=== PATIENT | female | born 1985 | race Caucasian/White ===

== ENCOUNTER 2017-10-13 13:18 | Emergency (ER) | payer BC, MEDICAID ==
[~2017-10-13] VITALS: Ht 152.4 cm; Wt 71.0 kg
[2017-10-13 13:25] VITALS: Ht 152.4 cm; Wt 71.0 kg
[2017-10-13] MEDS ORDERED: IBUPROFEN 600 MG TAB PO ONE (14:30)
--- NOTE | 2017-10-13 15:22 | RADRPT ---
PROCEDURE: XR LEFT SHOULDER. CLINICAL INDICATION: Left shoulder pain TECHNIQUE: 5 views of the left shoulder were performed. COMPARISON: None. FINDINGS: There is no evidence of acute fracture dislocation of the left shoulder. Bony mineralization and ali gnment are unremarkable. Joint spaces are preserved. The acromioclavicular joint is intact. No signi ficant soft tissue swelling. IMPRESSION: 1. No evidence of acute fracture or dislocation of the left shoulder. RPTAT: AAPP Physician Kisha Date Time Electronically viewed and signed by Physician Kisha on 10/13/2017 15:22 DAY/
--- NOTE | 2017-10-13 15:32 | RADRPT ---
PROCEDURE: XR Elbow. CLINICAL INDICATION: Trauma, left elbow pain TECHNIQUE: AP, lateral and oblique views of the left elbow performed. COMPARISON: None. FINDINGS: The lateral view is slightly limited due to patient positioning. There is no radiographic evidence o f acute fracture or dislocation. There is no significant joint effusion. The joint spaces are pres erved. The soft tissues are grossly unremarkable. IMPRESSION: 1. No radiographic evidence of acute osseous abnormality or significant joint effusion. RPTAT: UU .Gualberto Salcido MD, Date Time Electronically viewed and signed by .Gualberto Salcido MD, on 10/13/2017 15:32 .K/
--- NOTE | 2017-10-13 15:34 | RADRPT ---
PROCEDURE: XR Wrist. CLINICAL INDICATION: Left wrist pain, fall TECHNIQUE: 4 views of the right wrist were performed. COMPARISON: No prior studies are available for comparison. FINDINGS: There is a questionable nondisplaced cortical irregularity along the dorsal margin of the distal rad ius, cannot exclude a nondisplaced fracture at this location. Alignment is normal. Joint spaces are preserved. Visualized soft tissues are grossly unremarkable. IMPRESSION: 1. Questionable nondisplaced fracture along the dorsal margin of the distal radius, only seen on the lateral radiograph, not definitive. Recommend CT for further evaluation. RPTAT: UU .Gualberto Salcido MD, MD Date Time Electronically viewed and signed by .Gualberto Salcido MD, on 10/13/2017 15:34 .K/
[2017-10-13] MEDS ORDERED: IBUP400T22 PO (15:52)
[2017-10-13] MEDS ORDERED: HYDR-906 PO (15:52)
--- NOTE | 2017-10-13 18:46 | ERD ---
ER Documentation Chief Complaint Chief Complaint LEFT SHOULDER/UPPER/LOWER ARM PAIN D/T FALL AT MARKET X 1 HR AGO HPI This is a 31-year-old female presents to the ER with left shoulder pain left elbow pain and left wrist pain that started an hour ago after she slipped on some yogurt at the grocery store and fell onto her left arm. Pain is described as he it is worse with movement its throbbing in quality. Patient has not tried anything for the pain. Denies any numbness or tingling of her extremity. ROS 12 point review of systems was done, all negative except per HPI. Medications Home Meds Active Scripts Hydrocodone/Acetaminophen ([place] 5-325 Tablet) 1 Each Tablet, 1 TAB PO Q6H Y for PAIN, #10 TAB Prov:JAMES MERCHANT C 10/13/17 Ibuprofen* (Motrin*) 400 Mg Tab, 400 MG PO Q6, #30 TAB Prov:MAYUR,JAMES C 10/13/17 Allergies Allergies: Coded Allergies: No Known Drug Allergy (Verified Allergy, Unknown, 08/29/11) PMhx/Soc Medical and Surgical Hx: pt denies Medical Hx, pt denies Surgical Hx History of Surgery: No Anesthesia Reaction: No Hx Neurological Disorder: No Hx Respiratory Disorders: No Hx Cardiac Disorders: No Hx Psychiatric Problems: No Hx Miscellaneous Medical Probl: No Hx Alcohol Use: No Hx Substance Use: No Hx Tobacco Use: No Smoking Status: Never smoker Physical Exam Vitals Vital Signs Date Time Temp Pulse Resp B/P Pulse Ox O2 Delivery O2 Flow Rate FiO2 10/13/17 13:25 98.8 89 20 147/96 99 Physical Exam GENERAL: The patient is well developed and appropriate for usual state of health , in no apparent distress. HEENT: Atraumatic. CHEST: Clear to auscultation bilaterally. There are no rales, wheezes or rhonchi. HEART: Regular rate and rhythm. No murmurs, clicks, rubs or gallops. EXTREMITIES: Left shoulder: Patient has full and nonpainful range of motion of the left shoulder. She is slightly tender to palpation to the AC joint. Left elbow: Has painful extension and flexion of the left elbow she has however full range of motion. She is tender to palpation to the lateral epicondyles. There is no tenderness to palpation to the olecranon or medial epicondyles. Left wrist: Patient is tender to palpation to the distal radius, no snuffbox tenderness painful and limited extension and flexion of the wrist NEURO: Alert and oriented. Results 24 hrs Current Medications Medications (Trade) Dose Ordered Sig/Jos Route PRN Reason Start Time Stop Time Status Last Admin Dose Admin Ibuprofen (Motrin) 600 mg ONCE ONCE PO 10/13/17 14:30 10/13/17 14:31 DC 10/13/17 14:29 [place] [address] Radiology Main Line: [phone] DIAGNOSTIC IMAGING REPORT Patient: TARIK STOCKTON : 1985 Age: 31 Sex: F MR #: [id number] DOS: 10/13/17 0000 Ordering MD: JAMES MERCHANT PA-C Location: [facility] Room/Bed: PROCEDURE: XR Elbow. CLINICAL INDICATION: Trauma, left elbow pain TECHNIQUE: AP, lateral and oblique views of the left elbow performed. COMPARISON: None. FINDINGS: The lateral view is slightly limited due to patient positioning. There is no radiographic evidence of acute fracture or dislocation. There is no significant joint effusion. The joint spaces are preserved. The soft tissues are grossly unremarkable. IMPRESSION: 1. No radiographic evidence of acute osseous abnormality or significant joint effusion. RPTAT: UU .Gualberto Salcido MD, Date Time Electronically viewed and signed by .Gualberto Salcido MD, MD on 10/13/2017 15: 32 .K/ CC: JAMES MERCHANT [place] [id number] Radiology Main Line: [phone] DIAGNOSTIC IMAGING REPORT Patient: TARIK STOCKTON : 1985 Age: 31 Sex: F MR #: [id number] DOS: 10/13/17 0000 Ordering MD: JAMES MERCHANT PA-C Location: [facility] Room/Bed: PROCEDURE: XR LEFT SHOULDER. CLINICAL INDICATION: Left shoulder pain TECHNIQUE: 5 views of the left shoulder were performed. COMPARISON: None. FINDINGS: There is no evidence of acute fracture dislocation of the left shoulder. Bony mineralization and alignment are unremarkable. Joint spaces are preserved. The acromioclavicular joint is intact. No significant soft tissue swelling. IMPRESSION: 1. No evidence of acute fracture or dislocation of the left shoulder. RPTAT: AAPP Physician Kisha Date Time Electronically viewed and signed by Physician Kisha on 10/13/2017 15:22 JL/ CC: JAMES MERCHANT [address] [place] [address] Radiology Main Line: [phone] DIAGNOSTIC IMAGING REPORT Patient: TARIK STOCKTON : 1985 Age: 31 Sex: F MR #: [id number] DOS: 10/13/17 0000 Ordering MD: JAMES MERCHANT PA-C Location: [facility] Room/Bed: PROCEDURE: XR Wrist. CLINICAL INDICATION: Left wrist pain, fall TECHNIQUE: 4 views of the right wrist were performed. COMPARISON: No prior studies are available for comparison. FINDINGS: There is a questionable nondisplaced cortical irregularity along the dorsal margin of the distal radius, cannot exclude a nondisplaced fracture at this location. Alignment is normal. Joint spaces are preserved. Visualized soft tissues are grossly unremarkable. IMPRESSION: 1. Questionable nondisplaced fracture along the dorsal margin of the distal radius, only seen on the lateral radiograph, not definitive. Recommend CT for further evaluation. RPTAT: UU .Gualberto Salcido MD, MD Date Time Electronically viewed and signed by .Gualberto Salcido MD, MD on 10/13/2017 15: 34 .K/ CC: JAMES MERCHANT/MDM This is a 31-year-old female presents to the ER after falling onto her left arm , patient does have a possible distal radius fracture she was put in a radial gutter splint she was neurovascularly intact before and after splint application. I advised patient to follow-up with an orthopedic doctor as soon as possible. She will be sent home with ibuprofen and with [place]. Patient is to follow-up with her primary care doctor within 1-2 days return to ER sooner if symptoms worsen. My medical decision making sure with the patient she understands and agrees with plan. Departure Diagnosis: Primary Impression: Distal radius fracture, left Additional Impression: Fall Condition: Stable Patient Instructions: Treating Wrist Fractures, Fall, Mechanical Referrals: [facility] YOU HAVE RECEIVED A MEDICAL SCREENING EXAM AND THE RESULTS INDICATE THAT YOU DO NOT HAVE A CONDITION THAT REQUIRES URGENT TREATMENT IN THE EMERGENCY DEPARTMENT. FURTHER EVALUATION AND TREATMENT OF YOUR CONDITION CAN WAIT UNTIL YOU ARE SEEN IN YOUR DOCTORS OFFICE WITHIN THE NEXT 1-2 DAYS. IT IS YOUR RESPONSIBILITY TO MAKE AN APPOINTMENT FOR [facility]ARE. IF YOU HAVE A PRIMARY DOCTOR --you should call your primary doctor and schedule an appointment IF YOU DO NOT HAVE A PRIMARY DOCTOR YOU CAN CALL OUR PHYSICIAN REFERRAL HOTLINE AT IF YOU CAN NOT AFFORD TO SEE A PHYSICIAN YOU CAN CHOSE FROM THE FOLLOWING [facility]ICS [facility] [address] [facility]. [facility] [address] [facility] [address] [facility] [facility] [address] [facility]. [facility] [address] [facility] [facility]. [address] [facility] YOU HAVE RECEIVED A MEDICAL SCREENING EXAM AND THE RESULTS INDICATE THAT YOU DO NOT HAVE A CONDITION THAT REQUIRES URGENT TREATMENT IN THE EMERGENCY DEPARTMENT. FURTHER EVALUATION AND TREATMENT OF YOUR CONDITION CAN WAIT UNTIL YOU ARE SEEN IN YOUR DOCTORS OFFICE WITHIN THE NEXT 1-2 DAYS. IT IS YOUR RESPONSIBILITY TO MAKE AN APPOINTMENT FOR [facility]-UP CARE. IF YOU HAVE A PRIMARY DOCTOR --you should call your primary doctor and schedule and appointment IF YOU DO NOT HAVE A PRIMARY DOCTOR YOU CAN CALL OUR PHYSICIAN REFERRAL HOTLINE AT . IF YOU CAN NOT AFFORD TO SEE A PHYSICIAN YOU CAN CHOSE FROM THE FOLLOWING [facility] INSTITUTIONS: [facility] [address] [place] [address] [facility] [address] [place] [address] [facility] [address] [place] [address] [facility] Hours: Mon-Wed 9:00 AM - 5:00 PM Additional Instructions: Llame al doctor MAANA y sylvia dell DOLORES PARA DENTRO DE 1-2 CHILDS.Dgale a la secretaria que nosotros le instruimos hacer esta dolores.Avise o llame si arrieta condicin se empeora antes de la dolores. Regresa aqui si peor o no mejor. TIENES QUE IR CON UN ORTOPEDISTA LO MAS PRONTO POSIBLE JAMES MERCHANT Oct 13, 2017 18:46
== END 2017-10-13 16:17 | disposition home or self-care (01) ==
LOC: FTE 13:18
DX: S52.502A Unspecified fracture of the lower end of left radius, initial encounter for closed fracture (principal); W01.0XXA Fall on same level from slipping, tripping and stumbling without subsequent striking against object, initial encounter; Y92.512 Supermarket, store or market as the place of occurrence of the external cause
CPT/HCPCS: 29125; 73030; 73080; 73110; 99283; Z7610